=== PATIENT | male | born 1965 | race Caucasian/White ===

== ENCOUNTER 2018-05-15 02:27 | Emergency (ER) | payer SELFPAY ==
[~2018-05-15] VITALS: Ht 182.9 cm; Wt 86.2 kg
--- NOTE | 2018-05-15 02:45 | NUR ---
PT PROVIDED W/ FOOD AND WATER.
--- NOTE | 2018-05-15 02:51 | NUR ---
MISTY DUENAS AT BEDSIDE FOR MSE.
[2018-05-15] MEDS ORDERED: IBUPROFEN 600 MG TABLET ONE (02:58)
[2018-05-15] MEDS ORDERED: IBUPROFEN 600 MG TABLET PO ONE (03:00)
--- NOTE | 2018-05-15 03:02 | NUR ---
Patient given written and verbal discharge instructions. Patient verbalizes understanding of instructions. Patient is ambulatory with stable gait. Refuses offer of long term placement. Patient given list of available shelters in surrounding area.
== END 2018-05-15 03:10 | disposition home or self-care (01) ==
LOC: ER 02:29
DX: G89.29 Other chronic pain (principal); M79.671 Pain in right foot; M79.672 Pain in left foot; Z59.0 Homelessness
CPT/HCPCS: A4663